=== PATIENT | female | born 1955 | race Caucasian/White ===

== ENCOUNTER 2016-05-10 08:14 | Day surgery (SDC) | payer OTHER ==
[~2016-05-10] VITALS: Ht 152.4 cm; Wt 86.2 kg
[~2016-05-10 08:14] MED LIST: ASPI325T32 PO; BIFI4CAP PO; DIPH1TAB PO; DONE5TAB4 PO; IBUP1TAB56 PO; Immodium PO; LISI-567 PO; Lactated Ringer's 1,000 ML IV ONE; NICO1PAT5 TOPICAL; SIMV40TA5 PO; TRIA1CAP5 PO; VARE0.5T PO
[2016-05-10] MEDS ORDERED: Propofol 10,000 mCg/mL 20 mL Inj ONE ×2 (08:15)
[2016-05-10] MEDS ORDERED: Lidocaine PF 1% 30 mL Inj ONE ×2 (08:15)
[2016-05-10 08:45] VITALS: BP 113/67; PULSE 69; O2SAT 96
[2016-05-10] MEDS ORDERED: Lactated Ringer's 1,000 ML IV SCH (08:53)
--- NOTE | 2016-05-10 08:53 | PCM.HPANE ---
Patient Data Date of Service: May 10, 2016 Surgeon Admitting Provider: Attending Provider:Diony Roman MD Primary Care Physician:Malik Bennett DO Other Provider:Jovany Esteban Anesthesia Reason for Visit Chronic Diarrhea Ht/WT & BMI Height (Feet): 5 Height (Inches): 0 Weight (Kilograms): 86.18 Body Mass Index 37.00 Allergies Coded Allergies: No Known Allergies (Unverified , 05/09/16) Past Anesthesia History Anesthesia History: Denies:: Abnormal Airway, Anesthesia Reactions, Difficult Intubation, Fam Anesthesia Reaction, Fam Malignant Hypertherm, Malignant Hyperthermia Diabetes History Hx Diabetes?: No MRSA MRSA: No Medications Blood Thinner: Aspirin Last Dose Blood Thinner: May 08, 2016 Hypertension Medication: Yes Home Meds Incl Beta Peter: Yes Date Beta Peter Taken: May 10, 2016 Time Beta Peter Taken: 0530 Active Scripts Diphenoxylate/Atropine 2.5-0.025 mg (Lomotil 2.5-0.025 mg)1 Each Tablet2 Tablet PO Q4H #60 TABLET Prov:Elliott Chiu DO 03/17/16 Simvastatin 40 Mg [id number] Mg PO HS #30 TABLET Ref 0 Prov:Marquis Sandoval 01/03/16 Aspirin 325 Mg [id number] Mg PO DAILY #1 BOTTLE Prov:Marquis Sandoval 01/03/16 Reported Medications Diphenoxylate/Atropine 2.5-0.025 mg (Lomotil 2.5-0.025 mg)1 Each Tablet1 Tablet PO 05/09/16 Varenicline Tartrate (Chantix)0.5 Mg Tablet0.5 Mg PO 05/09/16 Donepezil (Aricept)5 Mg Tablet5 Mg PO HS Ref 0 05/09/16 Bifidobacterium Infantis (Align)4 Mg Capsule4 Mg PO 05/09/16 Ibuprofen/Diphenhydramine Cit (Motrin Pm Caplet)1 Each Tablet1 Each PO PRN For Pain 01/01/16 Triamterene/HCTZ 37.5-25 mg 1 Each Capsule1 Capsule PO DAILY Ref 0 01/01/16 Lisinopril 20 Mg [id number] Mg PO DAILY 30 Days Ref 0 01/01/16 Discontinued Reported Medications [Immodium] No Conflict CheckUnknown Dose PO PRN For Constipation 01/02/16 Discontinued Scripts Nicotine 14 mg/24 hr Patch 1 Each Patch.td241 Patch TOPICAL DAILY #30 Prov:Marquis Sandoval 01/03/16 History History of ENT Problems?: No HEENT History: Denies:: Abnormal Airway Cataracts Difficult Intubation Dysphagia Hearing Problem Sinus Problem Denture Type: Full- Upper Hx of Heart Problems?: Yes Cardiovascular History: Positive for:: Edema (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) Hypertension Thrombophlebitis (DVT left leg) Denies:: AICD Atrial Fibrillation Cardiac Surgery Chest Pain Congestive Heart Failure Heart Murmur Irregular Heartbeat Pacemaker Valvular Heart Disease Hx of Respiratory Problem?: Yes Respiratory History: Positive for:: Pneumonia (Not in the last 10 years) 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) Denies:: Asthma COPD Chest Surgery Dyspnea Emphysema Hemoptysis Hx Neurologic Problems?: Yes Neurological History: Positive for:: CVA (yes) Dizziness Denies:: Alzheimer's Disease Dementia (Increased memory loss over the last 7 months) Headaches Parkinson's Disease Seizures Hx of GI Problems?: Yes Gastrointestinal History: Denies:: Cirrhosis Diverticulitis Gall Bladder Disease Gastroesphageal Reflux Gastrointestinal Bleeding Heartburn Hepatitis Hiatal Hernia Liver Disease Rectal Bleeding Hx of Problems?: Yes Genitourinary History: Positive for:: Urinary Tract Infection Denies:: HX of Hemodialysis Kidney Stones HX of Peritoneal Dialysis: No Female Hx: Denies:: Endometriosis Pelvic Inflammatory Problems with Breasts? Hx Musculoskeletal Problems?: No Musculoskeletal History: Denies:: Back Injury Fibromyalgia Joint Replacement Hx of Psycho/Social Problems?: Yes Psycho Social History: Positive for:: Anxiety (Due to current situation, no medication) Hx Depression (Due to current situation, no medication) Denies:: Bipolar Disorder Hx Surgeries?: Yes (c section, Hyst) Hx Any Other Health Problems?: Yes Other History: Positive for:: Hospitalization (Only for surgery) Denies:: Cancer Thyroid Disease History Blood Transfusions: Denies:: Blood Transfusions Hx Diabetes: No Hx Alcohol Use: NoHx Substance Use: No Smoking Status: Current Every Day Smoker Have You Smoked inLast 12 mo: Yes (trying to quit: taking chantrex) Stop/Bang Treated for Sleep Apnea?: No Do You Have a CPAP Machine?: No S-Snoring: Do You Snore Loudly: Yes T-Tired: feel tired, fatigued: Yes O-Obsered: Observed not breath: Yes P-Blood Pressure: treated: Yes B- Body Mass Index > 35 kg/m2: Yes A- Age over 50: Yes N- Neck Large Circumference: No G- Gender Male: No ANTOINE Total Score: 6 ANTOINE Risk Assessment: High Risk, =/>3 Yes ANTOINE Category 4 OutPt Procedure: Yes Risk Assessment Category Category 1A: Patient has history of documented sleep apnea, and HAS NOT received any narcotic, sedative or anesthesia administration during this stay. Category 1B: Patient has history of documented sleep apnea, and HAS received any narcotic , sedative or anesthesia administration during this stay Category 2: Patient has SUSPECTED Obstructive Sleep Apnea, and HAS received any narcotic , sedative or anesthesia administration during this stay. Category 3: Patient has SUSPECTED Obstructive Sleep Apnea and HAS NOT received narcotic, sedative or anesthesia administration during this stay. Category 4: Outpatient in Procedural Areas with known sleep apnea or who screen positive for High Risk via the STOP/BANG questionnaire. Exam Exam Vital Signs Vital Signs Date Time Temp Pulse Resp B/P Pulse Ox O2 Delivery O2 Flow Rate FiO2 05/10/16 08:45 69 113/67 96 Room Air General Appearance: Alert, Oriented X3, Cooperative HEENT/AIRWAY: MP 3, Neck Movement (Full), Mouth Opening, Other (upper dentures) Lungs: Clear to Auscultation, Normal Air Movement Heart: Regular Rate/Rhythm, Normal S1, Normal S2 Plan Impression Patient chart reviewed, patient interviewed and anesthestic plan with risks, benefits, and alternatives discussed, and informed consent obtained. NPO Status: NPO ASA Physical Status: ASA3 Severe Disease Anesthetic Plan: MAC Bene/Risks/Altern/Consents: Yes HP Complete Prior to Induction: Yes Karsten Charles MD May 10, 2016 08:53
[2016-05-10] MEDS ORDERED: Ondansetron 2 mg/mL 2 mL Inj IVPUSH PRN (08:55)
[2016-05-10] MEDS ORDERED: MetoCLOpramide 5 mg/mL 2 mL Inj IVPUSH PRN (08:55)
[2016-05-10 09:20] VITALS: BP 86/50; PULSE 62; RESP 14; O2SAT 96
[2016-05-10 09:30] VITALS: BP 87/52; PULSE 58; RESP 14; O2SAT 98
[2016-05-10 09:36] VITALS: BP 96/53; PULSE 58; RESP 14; O2SAT 99
[2016-05-10 09:40] VITALS: BP 95/56; PULSE 59; RESP 14; O2SAT 96
--- NOTE | 2016-05-10 09:49 | PCM.ANEP1 ---
Post Anesthesia Phase 1 PACU Phase 1 Assessment Date of Service: May 10, 2016 Vital Signs Vital Signs Date Time Temp Pulse Resp B/P Pulse Ox O2 Delivery O2 Flow Rate FiO2 05/10/16 09:40 59 14 95/56 96 Room Air 05/10/16 09:36 58 14 96/53 99 Room Air 05/10/16 09:30 58 14 87/52 98 Room Air 05/10/16 09:20 36.7 62 14 86/50 96 Room Air 05/10/16 08:45 69 113/67 96 Room Air Anesthetic Administered: MAC Level of Alertness: Sleepy, easy to arouse ESTEVEZ's with Equal Strength: Yes Pain: No Nausea or Vomiting: No Oxygen Delivery: Room Air Lungs: Normal Air Movement Karsten Charles MD May 10, 2016 09:49
[2016-05-10 09:52] VITALS: BP 103/59; PULSE 55; RESP 14; O2SAT 94
--- NOTE | 2016-05-10 10:18 | PCM.ANEP2 ---
Post Anesthesia Evaluation ASA/CMS Post Anesthesia Date of Service: May 10, 2016 VS in Patient's Normal Range?: Yes Resp Stable; Airway Patent?: Yes CV Function & Hydration Stable: Yes Mental Status Recovered?: Yes Pain control Satisfactory?: Yes N/V Control Satisfactory?: Yes Karsten Charles MD May 10, 2016 10:18
--- NOTE | 2016-05-10 13:02 | ENDO ---
[address] [address] ENDOSCOPY PROCEDURE PATIENT: FARHANA DOMÍNGUEZ : 1955 MR#: [id number] ADMIT: 05/10/2016 JOB ID: [id number] DATE: 05/10/2016 PROCEDURE: Colonoscopy. INDICATION: Chronic diarrhea. The patient's ASA classification, Mallampati score and medications as per Dr. Silvestre Charles's anesthesia report. INSTRUMENT USED: PCF H 190 L. PREPARATION QUALITY: Was fair. PROCEDURE DETAILS: After informed consent was obtained, the patient was brought into the GI suite, where she was placed on oxygen via nasal cannula and monitored with continuous pulse oximeter, telemetry, and blood pressure monitoring. A time-out was performed. Then, she was placed in a left lateral decubitus position and medications were administered for sedation. Digital rectal examination was performed, which revealed poor rectal tone. The colonoscope was then inserted into the rectum and advanced under direct visualization to the terminal ileum which was identified by the presence of the villous appearing mucosa of the terminal ileum and ileocecal valve. Once the terminal ileum was reached, the colonoscope was withdrawn back into the rectum as the mucosa and lumen were examined. In the rectum, retroflexion was performed. Following retroflexion, remaining air in the rectum was suctioned, and the procedure was completed. FINDINGS: 1. Normal appearing terminal ileum. Multiple random biopsies were obtained. 2. Normal-appearing colon mucosa from rectum to cecum. Multiple random biopsies were obtained. 3. Scattered diverticula were seen throughout the sigmoid colon. IMPRESSION: Sigmoid diverticulosis, otherwise normal examination from rectum to terminal ileum. RECOMMENDATIONS: 1. Await biopsy results. 2. Follow up in GI clinic. COMPLICATIONS: None. ESTIMATED BLOOD LOSS: Less than 5 mL.
--- NOTE | 2016-05-11 11:53 | PATH ---
SURGICAL PATHOLOGY Attending Physician:Waylon Taylor CASE STATUS: Signed Out PATIENT NAME: AFRHANA DOMÍNGUEZ PID: [id number] : 1955 DATE COLLECTED:05/10/2016 17:48 SPECIMEN: 1: Colon, Biopsy 2: Ileum, Biopsy CLINICAL HISTORY: A: RANDOM COLON BIOPSY B: TERMINAL ILEUM BIOPSY FINAL DIAGNOSIS: 1.RANDOM COLON BIOPSIES: FRAGMENTS OF NORMAL-APPEARING COLON MUCOSA. Negative for significant architectural distortion. Negative for significant inflammation, dysplasia and malignancy. 2.TERMINAL ILEUM BIOPSY: FRAGMENTS OF NORMAL-APPEARING TERMINAL ILEUM MUCOSA. Negative for granulomas. Negative for significant inflammation, dysplasia and malignancy. ICD10 code R19.7 GROSS DESCRIPTION: The specimen is received in two formalin filled containers labeled with the patient's name. 1). The specimen is sublabeled "random colon" and consists of multiple portions of tissue which aggregate to 0.5 x 0.5 x 0.3 CM. The specimen is entirely submitted in cassette 1A. 2). The specimen is sublabeled "terminal ileum" and consists of 2 portions of tissue which aggregate to 0.3 x 0.3 x 0.2 CM. The specimen is entirely submitted in cassette 2A. 05/10/2016 DAC MICRO DESCRIPTION: See diagnosis. ICD-9 CODES: CPT CODES: 1: 14524 2: 93838 Electronically Signed Out Noel Mcneal MD [facility] Pathology [facility] [address] [facility] [address], [place] [address] Technical component performed at [facility], [address] [place] [address] Ave[address], [place], [address]
== END 2016-05-10 23:59 | disposition home or self-care (01) ==
LOC: END 08:14
PROVIDERS: ATTEND Internal Medicine Gastroenterology
DX: R19.7 Diarrhea, unspecified (principal); K92.1 Melena; I10 Essential (primary) hypertension; Z87.891 Personal history of nicotine dependence
CPT/HCPCS: 45380; J7120

== ENCOUNTER 2016-08-06 20:19 | Emergency (ER) | payer OTHER ==
[~2016-08-06] VITALS: Ht 152.4 cm; Wt 88.2 kg
[~2016-08-06 20:19] MED LIST changes: -Immodium PO; -Lactated Ringer's 1,000 ML IV ONE; -NICO1PAT5 TOPICAL
[2016-08-06 20:52] VITALS: BP 123/55; PULSE 66; RESP 18; O2SAT 94
--- NOTE | 2016-08-06 21:00 | ED.REPORT ---
HPI-Extremity Problem Lower Date of Service Aug 06, 2016 ED Provider: Derek Arnold DO A 60 year old female with a history of incompetent veins, left lower extremity DVT and chronic left lower extremity edema presents to the ED complaining of left lower extremity swelling and redness. The pt noticed increased swelling and redness in the lower left leg eight days ago, though she denies any trauma to cause this. This is accompanied by 5/10 pain and the symptoms worsen with walking and movement. The pt has an appointment to address her venous issues in the near future. Nursing Notes Stated Complaint: SWELLING OF LEFT LEG Chief Complaint: Extremity Trauma Nursing Notes Reviewed: Yes Allergies: Coded Allergies: No Known Allergies (Unverified , 05/09/16) Scheduled Aspirin (Aspirin) 325 Mg Tablet 325 MG PO DAILY Diphenoxylate/Atropine 2.5-0.025 mg (Lomotil 2.5-0.025 mg) 1 Each Tablet 2 TABLET PO Q4H Donepezil (Aricept) 5 Mg Tablet 5 MG PO HS Lisinopril (Lisinopril) 20 Mg Tablet 20 MG PO DAILY Simvastatin (Simvastatin) 40 Mg Tablet 40 MG PO HS Triamterene/HCTZ 37.5-25 mg (Triamterene/HCTZ 37.5-25 mg) 1 Each Capsule 1 CAPSULE PO DAILY Scheduled PRN Ibuprofen/Diphenhydramine Cit (Motrin Pm Caplet) 1 Each Tablet 1 EACH PO PRN For Pain Miscellaneous Medications Bifidobacterium Infantis (Align) 4 Mg Capsule 4 MG PO Diphenoxylate/Atropine 2.5-0.025 mg (Lomotil 2.5-0.025 mg) 1 Each Tablet 1 TABLET PO Varenicline Tartrate (Chantix) 0.5 Mg Tablet 0.5 MG PO General Time Seen by MD: 20:59 Chief Complaint Other (LLE edema) Hx Obtained From: Patient Arrived By: Walk-in Onset Occurred: More than a week ago... Symptom Duration: Since onset Recent Healthcare: No recent hospitalization, Recent doctor visit Past Medical History Past Medical History Hypertension Tuberculosis Hx of multiple falls Hx of TIA Incompetent veins chronic LLE due to DVT DVT LLE distant pneumonia depression Past Surgical History SAB Reports: Hysterectomy Family History Noncontributory Smoking History Current Every Day Smoker Social History Other Social History: Good social support, Lives with children, Local resident Ambulatory Status Independent Review of Systems Review of Systems Note: LLE redness Constitutional: Denies: Fever Musculoskeletal: Reports: Extremity pain, Extremity swelling, Denies: Back pain, Neck pain Skin: Denies Rash Complete sys rev & neg: except as marked. Physical Exam Initial Vital Signs Vital Signs (First) Date Time Temp Pulse Resp B/P Pulse Ox O2 Delivery O2 Flow Rate FiO2 08/06/16 20:52 37.1 66 18 123/55 94 Room Air Initial VS: Reviewed Lower Extremity / Pelvis / MS: Atraumatic, Full range of motion shiny erythema of left lower extremity greater diameter of the left leg no evidence of arterial insufficiency bounding pedal pulses Ankle / Foot: Atraumatic, Full range of motion General/Constitutional: Awake, Alert Respiratory / Chest: Atraumatic, Breath sounds NL, Breath sounds = bilat, No respiratory distress Cardiovascular: Heart rate NL, Regular rhythm, Heart sounds NL Skin: Atraumatic, No rash, Warm, Dry Neurologic: Oriented X3, Speech NL, No motor deficits, No sensory deficits Head / Eyes: Atraumatic, Normocephalic, PERRL, EOMI ENT: Atraumatic, Airway patent, Mucous membranes moist Neck: Atraumatic, Supple, Full range of motion Abdomen: Atraumatic, Soft, Non-tender Upper Extremity / MS: Atraumatic, Full range of motion Psychiatric: Affect NL, Mood NL Interpretation & Diagnostics Interpretation & Diagnostics: Venous Duplex US: IMPRESSION: No sonographic evidence for left lower extremity deep venous thrombosis. Dictated by: Ander Reynoso M.D. on 08/06/2016 at 22:18 Approved by: Ander Reynoso M.D. on 08/06/2016 at 22:19 Lab Results Interpretation Result Diagram: 08/06/16211408/06/162114 Test 08/06/16 21:15 White Blood Count 7.8th/mm3 (3.8-10.1) Red Blood Count 3.74mil/mm3 (3.90-5.20) Hemoglobin 11.1g/dL (12.0-15.6) Hematocrit 34.9% (35.0-46.0) Mean Corpuscular Volume 93.3fL (81-100) Mean Corpuscular Hemoglobin 29.7pg (27.0-35.0) Mean Corpuscular Hemoglobin Concent 31.8% (32.0-37.0) Red Cell Distribution Width 12.2% (12.3-15.4) Platelet Count 215bil/L (150-400) Neutrophils (%) (Auto) 58.2% (40-74) Lymphocytes (%) (Auto) 26.1% (14-46) Monocytes (%) (Auto) 9.6% (4-12) Eosinophils (%) (Auto) 5.5% (0-5) Basophils (%) (Auto) 0.5% (0-3) Sodium Level 140mEq/L (134-144) Potassium Level 4.2mEq/L (3.5-5.2) Chloride Level 103mEq/L (97-108) Carbon Dioxide Level 20mmol/L (18-29) Blood Urea Nitrogen 34mg/dL (8-27) Creatinine 0.80mg/dL (0.57-1.00) Estimat Glomerular Filtration Rate 105mL/min (>59) Glucose Level 126mg/dL (60-99) Calcium Level 9.5mg/dL (8.5-10.1) Total Bilirubin 0.2mg/dL (0.0-1.2) Aspartate Amino Transf (AST/SGOT) 16U/L (0-50) Alanine Aminotransferase (ALT/SGPT) 10U/L (0-32) Alkaline Phosphatase 55U/L (25-165) C-Reactive Protein 0.1mg/dL (0.0-0.5) Pro-B-Type Natriuretic Peptide 227.0pg/mL (0-287) Total Protein 6.4g/dL (6.4-8.4) Albumin 3.7g/dL (3.4-5.0) Hold Vaughan Top Tube Received (Received) Pulse Oximetry Interpretation Pulse Oximetry Interpretation: 94% on room air Pulse Oximetry: Pulse Ox normal Re-Eval/Medical Decision Med Decision/Clinical Course DVT, renal insufficiency and acute arterial insufficiency ruled out based on history (strong pulses, instant capillary refill, warm foot) physical examination and diagnostics. I suspect she has mild cellulitis. This is nonpurulent cellulitis. Keflex is the drug of choice. She will elevate her foot as much as possible. Short course of [place] provided for pain. Source of Hx: Old records Re-Evaluation/Progress : Time of Eval: 22:20 Patient Status: Condition improved Re-Evaluation/Progress Note: Pt rechecked, who is comfortable. The diagnosis and plan for discharge are discussed. The pt understands and agrees with the plan. All questions are addressed at this time. Counseled Regarding: Diagnosis, Lab results, Need for follow-up, When/why to return to ED Discharge & Departure Impression: Primary Impression: Cellulitis Site of cellulitis: extremity Site of cellulitis of extremity: lower extremity Laterality: left Qualified Code: L03.116 - Cellulitis of left lower limb Additional Impression: Edema of left lower extremity Disposition: Home Discharge Condition All VS Reviewed: Yes Condition: Stable Patient Instructions: Cellulitis (ED), Leg Edema (ED) Additional Instructions: Take Keflex 4 times daily for 5 days. Take 1-2 [place] every 6 hours as needed for severe pain. Do not drive, drink alcohol, or consume acetaminophen while taking the [place]. Keep the leg elevated and arrange for a recheck appointment in the next few days. You ultrasound showed no evidence of blood clot and your labs were reassuring. Call your primary care physician in the morning to arrange a follow up appointment this week. Return to the emergency department if you develop any new or worsening symptoms. Referrals: PREETI HENDRICKSON DO (PCP) Tone Attestation Portions of this note were transcribed by Rosemary Mackenzie. I, Dr. Arnold personally performed the history, physical exam and medical decision-making; I reviewed and confirmed the accuracy of the information in the transcribed note. Signed by: Tone Hernandez, 08/06/16 and 2245. copies to: PREETI HENDRICKSON Todd P DO Aug 06, 2016 21:00 ROSEMARY MACKENZIE Aug 06, 2016 21:38
[2016-08-06] MEDS ORDERED: HYDROcodone-APAP 5-325 mg Tablet PO ONE (21:30)
[2016-08-06 21:36] LABS: BASOPHILS % (AUTO) 0.5 % (0-3); EOSINOPHILS % (AUTO) 5.5 % (0-5); MONOCYTES % (AUTO) 9.6 % (4-12); Mean Corpuscular Hemoglobin 29.7 pg (27.0-35.0); Mean Corpuscular Volume 93.3 fL (81-100); NEUTROPHILS % (AUTO) 58.2 % (40-74); Platelet Count 215 bil/L (150-400)
--- NOTE | 2016-08-06 22:21 | DRSVH ---
PROCEDURE: US VEINOUS LEG DUPLEX UNILATERAL, LEFT INDICATIONS: 60 year-old female with left leg swelling and pain. TECHNIQUE: Real-time imaging, as well as color and pulse Doppler interrogation, were performed of the lower extr emity deep veins from the inguinal ligament to the popliteal fossa. COMPARISON: [facility], US, US VENOUS LEG DPLX UNI LT, 01/02/2016, 8:08. FINDINGS: The deep veins are normally compressible, and free of intraluminal thrombus. Color and pu lse Doppler demonstrate normal phasic intraluminal flow. There is normal augmentation response to di stal compression maneuver. IMPRESSION: No sonographic evidence for left lower extremity deep venous thrombosis. Dictated by: Ander Reynoso M.D. on 08/06/2016 at 22:18 Approved by: Ander Reynoso M.D. on 08/06/2016 at 22:19
[2016-08-06 22:33] VITALS: BP 123/78; PULSE 61; RESP 16; O2SAT 95
== END 2016-08-06 22:33 | disposition home or self-care (01) ==
LOC: SED 20:19
DX: L03.116 Cellulitis of left lower limb (principal); R60.0 Localized edema; I10 Essential (primary) hypertension; F17.200 Nicotine dependence, unspecified, uncomplicated; Z90.710 Acquired absence of both cervix and uterus; Z79.82 Long term (current) use of aspirin; Z79.899 Other long term (current) drug therapy

== ENCOUNTER → 2017-01-16 | Day surgery (SDC) | payer OTHER ==
[~2017-01-16] VITALS: Ht 152.4 cm; Wt 103.8 kg
[~2017-01-16] MED LIST changes: +Atropine 0.4 mg/mL Inj IVPUSH PRN; +BUPR100T15 PO; +Bupivacaine-MPF 0.5% 30 mL Inj INFILTRATE ONE; +CETI10CA PO; +CHOL200025 PO; +CRAN400T4 PO; +CeFAZolin Inj 2 GM in IV Premix 1 EACH IV ONE; +DICL100G26 TOPICAL; +Dexamethasone 4 mg/mL Inj IVPUSH PRN; +EPHEDrine Sulfate 50 mg/mL Inj IVPUSH PRN; +Gentamicin 40 mg/mL 2 mL Inj IRRIGATION ONE; +HYDROcodone-APAP 5-325 mg Tablet PO PRN; +HYDROmorphone 1 mg/mL Inj IVPUSH PRN; -IBUP1TAB56 PO; +Labetalol 5 mg/mL 20 mL Inj IV PRN; +Lactated Ringer's 1,000 ML IV ONE; +Lactated Ringer's 1,000 ML IV SCH; +Lactated Ringer's 500 ML IV PRN; +MEMA5TAB PO; +MULT-1018 PO; +MetoCLOpramide 5 mg/mL 2 mL Inj IVPUSH PRN; +NPR500T PO; +NYST1POW23 MC; +Ondansetron 2 mg/mL 2 mL Inj IVPUSH PRN; +Ondansetron 8 mg ODT Tablet PO PRN; +Phenylephrine 10,000 mCg/mL Inj IVPUSH PRN; +Propofol 10,000 mCg/mL 20 mL Inj ONE; +SERT25TA2 PO; -VARE0.5T PO; +Vancomycin 1,000 mg Inj IRRIGATION ONE; +fentaNYL-PF 50 mCg/mL 2 mL Inj IVPUSH PRN; +fentaNYL-PF 50 mCg/mL 2 mL Inj ONE; +hydrALAZINE 20 mg/mL Inj IVPUSH PRN
[2017-01-16] MEDS: Lactated Ringer's 1,000 ML IV SCH ×2 (06:39→08:41)
[2017-01-16 07:17] VITALS: BP 116/60; PULSE 54; RESP 16; O2SAT 95
--- NOTE | 2017-01-16 07:58 | PCM.HPANE ---
Patient Data Date of Service: Jan 16, 2017 Surgeon Admitting Provider: Attending Provider:Liliana Blue MD Primary Care Physician:Dee Aly PA-C Other Provider: Reason for Visit Fecal Incontinence, Urge Incontinence Ht/WT & BMI Height (Feet): 5 Height (Inches): 0 Weight (Kilograms): 103.78 Body Mass Index 44.00 Allergies Coded Allergies: No Known Allergies (Unverified , 01/09/17) Past Anesthesia History Anesthesia History: Denies:: Abnormal Airway, Anesthesia Reactions, Difficult Intubation, Fam Anesthesia Reaction, Fam Malignant Hypertherm, Malignant Hyperthermia Diabetes History Hx Diabetes?: No MRSA MRSA: No Medications Blood Thinner: Aspirin Hypertension Medication: Yes Home Meds Incl Beta Peter: No Reported Medications Cetirizine HCl (Zyrtec)10 Mg Sbzvosw35 Mg PO HS #30 CAPSULE Ref 0 01/09/17 Sertraline HCl (Zoloft)25 Mg Xbywou27 Mg PO DAILY 30 Days Ref 0 01/09/17 Nystatin 1 Each Powder.ea.1 Each MC BID 01/09/17 Naproxen 500 Mg Uns050 Mg PO BID PRN For Pain Ref 0 01/09/17 Diclofenac Gel 100 Gm Tube1 Applic TOPICAL BID PRN For Pain #1 TUBE 01/09/17 Cranberry Fruit (Cranberry)400 Mg Spfnjz142 Mg PO DAILY 01/09/17 Bupropion 100 Mg Qontdx757 Mg PO DAILY Ref 0 01/09/17 Triamterene/HCTZ 37.5-25 mg 1 Each Capsule1 Capsule PO DAILY Ref 0 10/18/16 Simvastatin 40 Mg Dcqavf34 Mg PO HS 30 Days Ref 0 10/18/16 Memantine HCl (Namenda)5 Mg Xiawju93 Mg PO DAILY Ref 0 10/18/16 Multivitamin (Multi Vitamin Daily)1 Each Tablet1 Each PO DAILY 30 Days Ref 0 10/18/16 Diphenoxylate/Atropine 2.5-0.025 mg (Lomotil 2.5-0.025 mg)1 Each Tablet1 Tablet PO PRN For Diarrhea or Loose Stool 10/18/16 Lisinopril 20 Mg Qjkukp53 Mg PO DAILY 30 Days Ref 0 10/18/16 Cholecalciferol (Vitamin D3) (Vitamin D3)2,000 Unit Tablet2,000 Unit PO DAILY 10/18/16 Aspirin 325 Mg Eulwai800 Mg PO DAILY #1 BOTTLE 10/18/16 Bifidobacterium Infantis (Align)4 Mg Capsule4 Mg PO DAILY 10/18/16 Donepezil (Aricept)5 Mg Fqviba44 Mg PO HS Ref 0 10/18/16 Discontinued Reported Medications Cetirizine HCl (Zyrtec)10 Mg Tazgmin20 Mg PO HS #30 CAPSULE Ref 0 10/18/16 Cholecalciferol (Vitamin D3) (Vitamin D3)50,000 Unit Bwhohen63,000 Unit PO WEEKLY 10/18/16 Oxybutynin Chloride 5 Mg Tablet5 Mg PO BID Ref 0 10/18/16 Bupropion HCl (Bupropion HCl ER)200 Mg Tablet.er100 Mg PO TID 10/18/16 History History of ENT Problems?: No HEENT History: Denies:: Abnormal Airway Cataracts Difficult Intubation Dysphagia Hearing Problem Sinus Problem Denture Type: Full- Upper Teeth Condition: Broken Teeth Hx of Heart Problems?: Yes Cardiovascular History: Positive for:: Edema (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) Hypertension Thrombophlebitis (DVT left leg approx 10 years) Denies:: AICD Atrial Fibrillation Cardiac Surgery Chest Pain Congestive Heart Failure Heart Murmur Irregular Heartbeat Pacemaker Valvular Heart Disease Hx of Respiratory Problem?: Yes Respiratory History: Positive for:: Pneumonia (remote hx of) Denies:: Asthma COPD Chest Surgery Dyspnea Emphysema Hemoptysis Oxygen Administration Tuberculosis Use of C-PAP Machine Hx Neurologic Problems?: Yes Neurological History: Positive for:: Dementia (early onset dementia ) Dizziness Denies:: Alzheimer's Disease CVA Headaches Multiple Sclerosis Parkinson's Disease Seizures Hx of GI Problems?: Yes Other GI Pertinent History: irritable bowel syndrome Hx of Problems?: Yes Genitourinary History: Positive for:: Urinary Tract Infection Denies:: HX of Hemodialysis Kidney Stones HX of Peritoneal Dialysis: No Female Hx: Denies:: Currently (hysterectomy) Endometriosis Pelvic Inflammatory Problems with Breasts? Skin History: Denies:: History Skin Disorders? Pressure Ulcers Hx Musculoskeletal Problems?: Yes Musculoskeletal History: Positive for:: Musculoskeletal Trauma (left shoulder doing PT now) Denies:: Back Injury Joint Replacement Hx of Psycho/Social Problems?: Yes Psycho Social History: Positive for:: Anxiety Hx Depression Denies:: Bipolar Disorder Hx Surgeries?: Yes (hysterectomy, c-sec.) Hx Any Other Health Problems?: Yes Other History: Positive for:: Hospitalization (Only for surgery) Denies:: Cancer Thyroid Disease History Blood Transfusions: Denies:: Blood Transfusions Hx Diabetes: No Hx Alcohol Use: NoHx Substance Use: No Smoking Status: Never Smoker Have You Smoked inLast 12 mo: Yes (quit Feb 2016) Stop/Bang S-Snoring: Do You Snore Loudly: No T-Tired: feel tired, fatigued: Yes O-Obsered: Observed not breath: Yes P-Blood Pressure: treated: Yes B- Body Mass Index > 35 kg/m2: Yes A- Age over 50: Yes N- Neck Large Circumference: Yes G- Gender Male: No ANTOINE Total Score: 6 ANTOINE Risk Assessment: High Risk, =/>3 Yes ANTOINE Category 4 OutPt Procedure: Yes Risk Assessment Category Category 1A: Patient has history of documented sleep apnea, and HAS NOT received any narcotic, sedative or anesthesia administration during this stay. Category 1B: Patient has history of documented sleep apnea, and HAS received any narcotic , sedative or anesthesia administration during this stay Category 2: Patient has SUSPECTED Obstructive Sleep Apnea, and HAS received any narcotic , sedative or anesthesia administration during this stay. Category 3: Patient has SUSPECTED Obstructive Sleep Apnea and HAS NOT received narcotic, sedative or anesthesia administration during this stay. Category 4: Outpatient in Procedural Areas with known sleep apnea or who screen positive for High Risk via the STOP/BANG questionnaire. Exam Exam Vital Signs Vital Signs Date Time Temp Pulse Resp B/P Pulse Ox O2 Delivery O2 Flow Rate FiO2 01/16/17 07:17 36.0 54 16 116/60 95 Room Air General Appearance: Alert, Oriented X3, Cooperative HEENT/AIRWAY: MP 3, Neck Movement (thick neck), Mouth Opening (Wide) Lungs: Clear to Auscultation, Normal Air Movement Heart: Regular Rate/Rhythm, Normal S1, Normal S2 Meds/Labs/Diagnostics Admission Meds Current Medications Lactated Ringer's (Lr) 1,000 ml @ 120 mls/hr Q8H20M IV Last administered on t 06:39; Start 01/16/17 at 05:00; Stop 01/16/17 at 13:19 Plan Impression Patient chart reviewed, patient interviewed and anesthestic plan with risks, benefits, and alternatives discussed, and informed consent obtained. NPO per Anesth. Guidelines: Yes ASA Physical Status: ASA3 Severe Disease Anesthetic Plan: MAC Bene/Risks/Altern/Consents: Yes HP Complete Prior to Induction: Yes Karsten Charles MD Jan 16, 2017 07:58
[2017-01-16 09:47] VITALS: BP 100/61; PULSE 59; RESP 16; O2SAT 97
--- NOTE | 2017-01-16 10:22 | PCM.ANEP1 ---
Post Anesthesia PACU Phase 1 Assessment Date of Service: Jan 16, 2017 Vital Signs Vital Signs Date Time Temp Pulse Resp B/P Pulse Ox O2 Delivery O2 Flow Rate FiO2 01/16/17 09:47 36.0 59 16 100/61 97 Room Air 01/16/17 07:17 36.0 54 16 116/60 95 Room Air Anesthetic Administered: MAC Level of Alertness: Awake, talking ESTEVEZ's with Equal Strength: Yes Pain: No Nausea or Vomiting: No CV Function & Hydration Stable: Yes Airway Device: Oxygen Delivery: Simple Mask Lungs: Normal Air Movement Dermatome Level: Full Sensation PACU Phase 2 Assessment Complications: No Follow up Care: N/A Patient Instructions Provided: N/A Karsten Charles MD Jan 16, 2017 10:22
[2017-01-16 10:29] VITALS: BP 121/69; PULSE 54; RESP 16; O2SAT 94
--- NOTE | 2017-01-18 00:44 | OP ---
[address] [address] OPERATIVE REPORT PATIENT: FARHANA DOMÍNGUEZ : 1955 MR#: [id number] ADMIT: 01/16/2017 JOB ID: [id number] DATE OF SURGERY: 01/16/2017 PROCEDURE: Stage 1 InterStim implant to include transforaminal placement of quadripolar lead, as well as fluoroscopy imaging and guidance. SURGEON: Liliana Blue MD. ANESTHESIA: Local with monitored anesthesia care and IV sedation. PREOPERATIVE DIAGNOSIS(ES): Fecal incontinence, urge urinary incontinence, intractable. POSTOPERATIVE DIAGNOSIS(ES): Fecal incontinence, urge urinary incontinence, intractable. INDICATIONS: The patient is a very pleasant 61-year-old woman with some early onset dementia. Excellent support system. Tried and failed myriad of other treatments for her urinary urgency, frequency and urge incontinence. Also experiencing very troublesome fecal incontinence nearly daily. She is counseled about risks and benefits of treatment options, and elected to proceed with a trial of sacral neuromodulation with the excellent support of her daughter, who is her live-in caregiver full-time. PROCEDURE IN DETAIL: After appropriate informed consent was obtained, the patient was brought to the operating room. She received IV antibiotics prior to onset of procedure. She was made comfortable in the prone position. All pressure points carefully padded. Cleaned, prepped, and draped in the usual sterile fashion. Fluoroscope was brought in. We were able to identify mixture of bony landmarks, and fluoroscopy and palpation were used to locate the right S3 sacral foramen. We used half/half mixture of lidocaine and Marcaine with epinephrine for local anesthesia throughout the course of the case. Area of skin overlying the foramina was numbed up. We used a finder needle to locate the foramen. Testing revealed good fish response and good toe response indicating an S3 area. We then converted this over under fluoroscopic guidance to the quadripolar lead. This was advanced through the access sheath. Position looked quite good with a good curve. We had excellent responses on all four electrodes at low thresholds under one. Sheath was removed lead in place. We then created a pocket below the right iliac crest, again using local anesthesia for pain control. This was done sharply and bluntly with electrocautery. The distal end of the lead was tunneled to the pocket. We then used the boot and attached the extension wire which was tunneled to the contralateral side to exit the patient's body. Wounds were irrigated copiously with antibiotic solution of vancomycin and gentamicin. Electrocautery was used for hemostasis. The wounds were closed with a layer of 2-0 Vicryl, layer of 4-0 Monocryl, and then benzoin Steri-Strips. She tolerated this very well, was awakened and taken in stable condition back to the one day surgery area.
== END | disposition home or self-care (01) ==
LOC: SAS 06:30
PROVIDERS: ATTEND Urology
DX: N39.41 Urge incontinence (principal); R15.9 Full incontinence of feces; F03.90 Unspecified dementia, unspecified severity, without behavioral disturbance, psychotic disturbance, mood disturbance, and anxiety
CPT/HCPCS: 64581; 76000; C1778; J0690; J1580; J2704; J3010; J3370; J7120